=== PATIENT | female | born 1995 | race Caucasian/White ===

== ENCOUNTER 2025-05-07 18:27 | Emergency (ER) | payer BC, SELFPAY ==
[2025-05-07 18:29] VITALS: BP 93/73
[2025-05-07 18:54] LABS: Hematocrit 36.5 % (37.0-47.0); Hemoglobin 12.5 g/dL (12.0-16.0); Mean Corp Hgb Conc. 34.2 g/dL (33.0-37.0); Mean Corpuscular Volume 88.4 fL (81.0-99.0); Nucleated Red Blood Cells % 0 %; Platelet Count 211 10^3/uL (130-400); Red Cell Dist. Width 12.1 % (11.5-14.5)
[2025-05-07 19:00] LABS: Urine Character Clear (Clear)
[2025-05-07 19:06] LABS: HCG, Serum Qualitative Screen Negative
[2025-05-07 19:10] LABS: ALT (SGPT) 16 U/L (0-35); AST (SGOT) 23 U/L (14-36); Albumin 4.4 g/dl (3.5-5.0); Alkaline Phosphatase 61 U/L (38-126); Blood Urea Nitrogen 15 mg/dl (7-17); Calcium 9.5 mg/dl (8.4-10.2); Carbon Dioxide 24 mmol/L (22-30); Chloride 106 mmol/L (98-107); Glucose 98 mg/dl (70-99); Potassium 3.9 mmol/L (3.5-5.1); Sodium 136 mmol/L (135-145); Total Protein 6.7 g/dl (6.3-8.2); eGFR > 60.00
[2025-05-07 19:13] LABS: Urine Squamous Cell 16-20 /LPF (Few)
[2025-05-07 19:14] LABS: Urine Red Blood Cell 0-2 /HPF (0-2)
--- NOTE | 2025-05-08 00:26 | ED.GENMED ---
History of Present Illness
General
Chief Complaint: Urinary Symptoms
Source: patient
Exam Limitations: none
Time Seen by Provider: 05/07/25 22:58
Nursing documentation reviewed up to this point in time: agreed with
History of Present Illness
History of Present Illness:
This is a 30-year-old female who presents with acute hematuria that began 1 week ago accompanied with intermittent back pain primarily left flank, intermittent nausea, intermittent lower abdominal discomfort as well as intermittent urinary
frequency, urinary urgency and occasional dysuria. She was evaluated by her industrial psychology professor with onset of symptoms and was started on a 1 week course of Macrobid. Urinalysis showed no evidence of UTI, no hematuria but there was note of calcium
oxalate crystals. Urine culture showed no growth. She received a call from her industrial psychology professor 2 days ago noting negative urine culture and to stop the antibiotic. She was also told that she may be passing a kidney stone and if back pain persist to
follow-up with her PCP.
Patient has continued with intermittent back pain primarily left-sided but occasionally right-sided. No radicular signs or symptoms. No fever nor chills. No fall nor reported injury.
She has had some chronic constipation.
No aggravating or relieving factors.
Past History
Past History
ED Past Medical History: Psychiatric (ADD)
ED Past Surgical History: None
Social History
Tobacco: Non-smoker
Alcohol: Occasional
Personal: Single
Living: with family
Employment: Employed
Family History
Family History: Other (Noncontributory)
Phy Exam
Physical Exam
Physical Exam:
GENERAL: 30-year-old female appears her stated age, bright and alert, pleasant, appears in no acute distress.
EYE: anicteric
NECK: Supple, nontender, no meningismus, no significant adenopathy.
ENT: oral mucosa is moist. No rhinorrhea.
CARDIAC: Regular rate and rhythm. no murmur.
LUNGS: Clear breath sounds bilaterally, no acute respiratory distress, no wheezes/rales/rhonchi
ABDOMEN: Soft, nondistended, minimal tenderness left lower quadrant with deep palpation only. Palpable firm stool in the left lower quadrant. Mild left CVA tenderness with percussion. No r/g, normoactive BS.
BACK: No midline bony tenderness. Mild paravertebral muscular tenderness bilateral lumbar region.
NEUROLOGICAL: Alert and oriented x3, no focal neuro deficits. Gait is moreau and steady.
SKIN: Warm and dry, normal color, skin intact. No rash.
MUSCULOSKELETAL: No C/C/E. peripheral pulses are full and equal b/l. No palpable tenderness.
PSYCH: Normal and appropriate interaction.
Course
Orders/Labs/Results
Orders:
Orders
05/07/25 18:29
Test Result ONCE
05/07/25 18:44
CMP [Comprehensive Metabolic Panel] Urgent
Complete Blood Count/With Diff Urgent
HCG, Serum Qualitative Screen Urgent
Urinalysis Reflex To Culture Urgent
Date Specimen was Collected: 05/07/25
Time Specimen was Collected: 18:29
Urine Microscopic Reflex Cult Urgent
Urine Culture Urgent
PAWEL Source: U
Specimen Description:
Date Specimen was Collected: 05/07/25
Time Specimen was Collected: 18:29
05/07/25 23:09
CT Abd/pelvis W Iv Cont Urgent
Comment:
Reason For Exam: left flank pain, lowr abd pain, microsc hematuria
Abnormal Lab Results
05/07/25
18:44
RBC 4.13 L 10^6/uL
(4.20-5.40)
Hct 36.5 L %
(37.0-47.0)
MPV 10.6 H fL
(7.4-10.4)
Ur Occult Blood Reflex 2+ A
(Negative)
Urine Bacteria (Reflex) Moderate A
(Negative)
05/07/25 18:44
05/07/25 18:44
Vital Signs
Initial and Last Documented VS:
Initial Vital Signs
Temp Pulse Resp BP Pulse Ox
98.7 F 81 18 93/73 100
05/07/25 18:29 05/07/25 18:29 05/07/25 18:29 05/07/25 18:29 05/07/25 18:29
Last Documented Vital Signs
Temp Pulse Resp BP Pulse Ox
98.7 F 81 18 93/73 100
05/07/25 18:29 05/07/25 18:29 05/07/25 18:29 05/07/25 18:29 05/07/25 18:29
MDM/Problems Addressed
Differential Diagnosis Includes:
Concern for ureteric stone, pyelonephritis, interstitial cystitis, ovarian cyst, constipation, musculoskeletal back pain. Less likely colitis/diverticulitis.
Labs are reassuring�within normal limits.
Urinalysis is essentially unremarkable. 0-2 RBCs, moderate bacteria but only 3-5 WBCs and appears to be a contaminated specimen with 16-20 squamous epithelial cells more consistent with contamination and not consistent with UTI.
Recent urine culture from last week was negative�no growth.
Will check CT abdomen pelvis.
*Radiology
Radiology exam reviewed: radiology read reviewed
*Pulse Oximetry
SaO2: 100
Oxygen Mode of Delivery: Room air
Patient hypoxic: no
*Critical Care Note
Total Time (30-74mins, 75-104mins- exclusive of procedures): Not Applicable
Update Note
Update Note:
Patient continues to appear comfortable.
CT abdomen pelvis is unremarkable. No acute process within the abdomen nor pelvis. Mild constipation noted. Small dominant follicle within the left ovary.
With microscopic urinalysis 1 week ago positive for calcium oxalate crystals and patient reporting gross hematuria she certainly could have recently passed a kidney stone. There is no evidence of hydronephrosis nor intrarenal stones currently.
Discussed importance of staying well-hydrated on a daily basis. May take Tylenol versus ibuprofen as needed for back pain.
Prompt follow-up with PCP for recheck.
ED Attending Note
-
Portions of this chart may have been created with voice recognition software.� Occasional wrong word or��sound alike� substitutions may have occurred due to the inherent limitations of voice recognition software.
Discharge Plan
Departure
Patient Disposition: Home (Routine Discharge)
Date of Disposition: 05/08/25
Time of Disposition: 00:28
Patient with high blood pressure during this ER visit?: No
Condition: Good
Discharge Problem:
Acute left flank pain, gross hematuria-resolved
Instructions: Kidney stone diet, Flank pain - ED discharge instructions
Prescriptions:
No Action
amoxicillin-pot clavulanate 1 TABLET tablet
1 tab PO Q12 Qty: 14 0RF
dextroamphetamine-amphetamine [Adderall XR] 20 MG capsule,extended release 24hr
20 mg PO DAILY
spironolactone 50 MG tablet
50 mg PO BID
Control
1 tab PO DAILY
Referrals:
UNKNOWN - PT DOES,NOT KNOW [Family Provider]
Idalmis Spence CRNP [Non-Admitting Privileges, Gynecology] - Call in 1-3 days for appt
Stand Alone Forms: Return to Work
Interventions
Interventions:
*Risk Screen - Suicide Last Done: 05/07/25 18:29
*Neglect/Abuse Screening Last Done: 05/07/25 18:29
ED-Female Genitourinary Assessment Last Done: 05/07/25 22:47
Discharge Date and Time
Discharge Date/Time: 05/08/25 00:37
Print Language: GRENADIAN
[2025-05-08 00:35] VITALS: BP 100/62
== END 2025-05-08 00:37 | disposition home or self-care (01) ==
LOC: EMR 18:27
PROVIDERS: Emergency Medicine; EMERGENCY PHYSICIAN Emergency Medicine
DX: R10.9 Unspecified abdominal pain (principal); R31.0 Gross hematuria; R10.30 Lower abdominal pain, unspecified; R11.0 Nausea; M54.9 Dorsalgia, unspecified; R30.0 Dysuria; R35.0 Frequency of micturition; R39.15 Urgency of urination; K59.09 Other constipation; F90.9 Attention-deficit hyperactivity disorder, unspecified type; Z88.1 Allergy status to other antibiotic agents
CPT/HCPCS: 99284; 74177; 80053; 81003; 81015; 84703; 85025; 87086; Q9967